=== PATIENT | male | born 1970 ===

== ENCOUNTER 2017-04-27 15:32 | Emergency (ER) | payer BC ==
[2017-04-27 16:25] VITALS: BP 107/71
--- NOTE | 2017-04-27 16:39 | UC ---
Skin Complaint HPI - HPI Summary HPI Summary: 46 yo male with large bull's eye rash noted left inner thigh Out doors a lot no f/c no shah, myalgias - History of Current Complaint Chief Complaint: [employer] Time Seen by Provider: 04/27/17 16:09 Stated Complaint: SKIN COMPLAINT Hx Obtained From: Patient Onset/Duration: Sudden Onset, Gradual Onset Timing: Constant Onset Severity: Mild Current Severity: Mild Pain Intensity: 0 Pain Scale Used: 0-10 Numeric Location: Other - left inner thigh Character: Swelling, Redness Aggravating: Nothing Alleviating: Nothing Associated Signs & Symptoms: Positive: Rash - Allergy/Home Medications Allergies/Adverse Reactions: Allergies Allergy/AdvReac Type Severity Reaction Status Date / Time allergies Allergy Difficulty Uncoded 04/27/17 16:18 Breathing Review of Systems Constitutional: Negative Skin: Rash Eyes: Negative ENT: Negative Respiratory: Negative Cardiovascular: Negative Gastrointestinal: Negative Genitourinary: Negative Motor: Negative Neurovascular: Negative Musculoskeletal: Negative Neurological: Negative Psychological: Negative All Other Systems Reviewed And Are Negative: Yes PMH/Surg Hx/FS Hx/Imm Hx Previously Healthy: Yes Other History Of: Negative For: Anticoagulant Therapy - Surgical History Surgical History: None Surgery Procedure, Year, and Place: t/a as child - Social History Alcohol Use: Occasionally Substance Use Type: None Smoking Status (MU): Never Smoked Tobacco Physical Exam Triage Information Reviewed: Yes Appearance: Well-Appearing, No Pain Distress, Well-Nourished Vital Signs: Initial Vital Signs Temp 98.4 F 04/27/17 16:19 Pulse 67 04/27/17 16:19 Resp 18 04/27/17 16:19 BP 107/71 04/27/17 16:19 Pulse Ox 97 04/27/17 16:19 Vital Signs Reviewed: Yes ENT: Positive: Hearing grossly normal. Negative: Nasal congestion, Nasal drainage, Trismus, Muffled/hoarse voice Neck: Positive: Supple, Nontender Respiratory: Positive: Lungs clear, Normal breath sounds, No respiratory distress Cardiovascular: Positive: RRR, No Murmur, Pulses Normal Psychological Exam: Normal Skin Exam: Other - 5x8 cm bull's eye lesiong left inner thigh c/w EM Course/Dx - Diagnoses Provider Diagnoses: rash. suspect early lyme disease Discharge - Discharge Plan Condition: Stable Disposition: HOME Prescriptions: DOXYcycline CAP(*) [DOXYcycline 100MG CAP(*)] 100 mg PO BID #[id number] Patient Education Materials: Lyme Disease (ED) Referrals: Guido Ugalde MD [Primary Care Provider] -
== END 2017-04-27 16:48 | disposition home or self-care (01) ==
LOC: UCCORT 15:32
DX: R21 Rash and other nonspecific skin eruption (principal)
CPT/HCPCS: 99212; G0463